=== PATIENT | female | born 1970 | race Caucasian/White ===

== ENCOUNTER 2020-04-23 01:19 | Emergency (ER) | payer SELFPAY ==
[2020-04-23 02:11] LABS: Absolute Lymphocytes (CBC) 1.6 K/uL (0.7-4.9); Basophils % 0.8 % (0-1.3); Hematocrit 36.5 % (36.0-45.0); Lymphocytes % 17.1 % (15.3-44.8); MPV 8.8 fL (7.6-11.3); RBC Red Blood Cell Count 4.01 M/uL (3.86-4.86)
[2020-04-23 02:37] LABS: ALT/SGPT 25 U/L (12-78); AST/SGOT 20 U/L (15-37); Albumin 3.5 g/dL (3.4-5.0); Alkaline Phosphatase 79 U/L (45-117); BUN Blood Urea Nitrogen 9 mg/dL (7-18); Bicarbonate 22 mmol/L (21-32); Bilirubin Direct 0.2 mg/dL (0-0.2); Bilirubin Total 0.6 mg/dL (0.2-1.0); CKMB Creatine Kinase MB 2.4 ng/mL (0.3-3.6); Creatine Phosphokinase 183 U/L (26-192); Glucose Level 91 mg/dL (74-106); Lipase 62 U/L (73-393); Magnesium 1.7 mg/dL (1.8-2.4); NT PRO-BNP 48 pg/mL (<125); Potassium 3.1 mmol/L (3.5-5.1); Protein, Total 7.3 g/dL (6.4-8.2); Sodium Level 138 mmol/L (136-145); Troponin (Emerg Dept Use Only) < 0.02 ng/mL (0.0-0.045)
[2020-04-23 02:42] LABS: Protime INR 0.97
--- NOTE | 2020-04-23 03:41 | EDPHYS ---
Physician Documentation [facility] Name: Brenda Salcedo Age: 50 yrs Sex: Female : 1970 Arrival Date: 04/23/2020 Time: 01:20 Bed 7 Private MD: ED Physician Hector Scruggs HPI: 04/23 03:00 This 50 yrs old Female presents to ER via EMS with complaints of Shortness Of tw4 Breath. 03:00 The patient or guardian reports cough, that is constant. Onset: The symptoms/episode tw4 began/occurred today. Severity of symptoms: At their worst the symptoms were moderate, in the emergency department the symptoms are unchanged. Modifying factors: The symptoms are alleviated by nothing, the symptoms are aggravated by nothing. The patient has not experienced similar symptoms in the past. 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 - Social history:: Smoking status: Patient reports the use of cigarette tobacco products, Patient uses street drugs, marijuana. ROS: 03:00 Constitutional: Negative for fever, chills, and weight loss, Eyes: Negative for injury, tw4 pain, redness, and discharge, Cardiovascular: Negative for chest pain, palpitations, and edema, Abdomen/GI: Negative for abdominal pain, nausea, vomiting, diarrhea, and constipation, Back: Negative for injury and pain, MS/Extremity: Negative for injury and deformity, Skin: Negative for injury, rash, and discoloration, Neuro: Negative for headache, weakness, numbness, tingling, and seizure. 03:00 Respiratory: Positive for cough, "sounds productive", shortness of breath. Exam: 03:00 Constitutional: This is a well developed, well nourished patient who is awake, alert, tw4 and in no acute distress. Head/Face: Normocephalic, atraumatic. Chest/axilla: Normal chest wall appearance and motion. Nontender with no deformity. No lesions are appreciated. Cardiovascular: Regular rate and rhythm with a normal S1 and S2. No gallops, murmurs, or rubs. Normal PMI, no JVD. No pulse deficits. Respiratory: Lungs have equal breath sounds bilaterally, clear to auscultation and percussion. No rales, rhonchi or wheezes noted. No increased work of breathing, no retractions or nasal flaring. Abdomen/GI: Soft, non-tender, with normal bowel sounds. No distension or tympany. No guarding or rebound. No evidence of tenderness throughout. Back: No spinal tenderness. No costovertebral tenderness. Full range of motion. MS/ Extremity: Pulses equal, no cyanosis. Neurovascular intact. Full, normal range of motion. Neuro: Awake and alert, GCS 15, oriented to person, place, time, and situation. Cranial nerves II-XII grossly intact. Motor strength 5/5 in all extremities. Sensory grossly intact. Cerebellar exam normal. Normal gait. Vital Signs: 01:34 BP 107 / 54; Pulse 85; Resp 18; Temp 97.9(O); Pulse Ox 100% on R/A; mg2 03:22 BP 102 / 90; Pulse 80; Resp 18; Pulse Ox 100% on R/A; mg2 MDM: 01:48 Patient medically screened. tw4 03:01 Differential Diagnosis: Bronchitis Influenza Upper Respiratory Infection Asthma tw4 Exacerbation Viral Syndrome Pneumonia. Data reviewed: vital signs, nurses notes. Data reviewed: lab test result(s), CBC, electrolytes, Flu: EKG, radiologic studies, plain films. Data interpreted: Pulse oximetry: Interpretation: normal. Test interpretation: by ED physician or midlevel provider: ECG, plain radiologic studies. Counseling: I had a detailed discussion with the patient and/or guardian regarding: the historical points, exam findings, and any diagnostic results supporting the discharge/admit diagnosis, lab results, radiology results. 03:41 Special discussion: I discussed with the patient/guardian in detail that at this point tw4 there is no indication for admission to the hospital. It is understood, however, that if the symptoms persist or worsen the patient needs to return immediately for re-evaluation. 04/23 01:47 Order name: Blood Culture Adult (2) 04/23 01:47 Order name: BMP; Complete Time: 03:29 04/23 03:30 Interpretation: Normal except: K 3.1; CL 108; GFR 67. tw4 04/23 01:47 Order name: CBC with Diff; Complete Time: 03:29 04/23 03:31 Interpretation: Within normal limits. 04/23 01:47 Order name: Ckmb; Complete Time: 03:29 04/23 03:31 Interpretation: Within normal limits: CKMB 2.4. 04/23 01:47 Order name: CPK; Complete Time: 03:29 04/23 03:31 Interpretation: Within normal limits: CPK 183. 04/23 01:47 Order name: D-Dimer; Complete Time: 03:29 04/23 03:31 Interpretation: Within normal limits: D-DIMER 483. 04/23 01:47 Order name: Hepatic Function; Complete Time: 03:29 04/23 03:30 Interpretation: Normal except: GLOB 3.8; A/G 0.9. 04/23 01:47 Order name: Lipase; Complete Time: 03:29 04/23 03:30 Interpretation: Normal except: LIP 62. 04/23 01:47 Order name: Magnesium; Complete Time: 03:29 04/23 03:31 Interpretation: Abnormal: MG 1.7. 04/23 01:47 Order name: NT PRO-BNP; Complete Time: 03:29 04/23 03:31 Interpretation: Within normal limits: NT PRO-BNP 48. 04/23 01:47 Order name: PT-INR; Complete Time: 03:29 04/23 03:31 Interpretation: Within normal limits: PT 11.4. 04/23 01:47 Order name: Ptt, Activated; Complete Time: 03:29 04/23 03:33 Interpretation: Within normal limits: PTT 30.4. 04/23 01:47 Order name: Troponin (emerg Dept Use Only); Complete Time: 03:29 04/23 03:33 Interpretation: Within normal limits: TROPED < 0.02. 04/23 01:48 Order name: Blood Culture EDMI 04/23 01:47 Order name: XRAY CXR (1 view) 04/23 01:47 Order name: EKG; Complete Time: 01:49 04/23 01:47 Order name: Cardiac monitoring; Complete Time: 01:47 04/23 01:47 Order name: EKG - Nurse/Tech; Complete Time: 01:47 04/23 01:47 Order name: IV Saline Lock; Complete Time: 01:47 04/23 01:47 Order name: Labs collected and sent; Complete Time: 01:47 04/23 01:47 Order name: O2 Per Protocol; Complete Time: 01:47 04/23 01:47 Order name: O2 Sat Monitoring; Complete Time: 01:47 04/23 01:48 Order name: COVID-19 04/23 01:48 Order name: Document PUI#; Complete Time: 02:04/23 01:48 Order name: Droplet/Contact Precautions; Complete Time: 02:04/23 01:48 Order name: Labs collected and sent; Complete Time: 01:59 04/23 02:11 Order name: Flu; Complete Time: 03:04/23 03:34 Interpretation: Within normal limits. tw4 04/23 02:11 Order name: Strep; Complete Time: 03:04/23 03:34 Interpretation: Within normal limits. tw4 04/23 02:48 Order name: Throat Culture EDMI 04/23 01:48 Order name: O2 Per Protocol; Complete Time: 01:59 ea EC:02 Rate is 78 beats/min. Rhythm is regular. QRS [place] is Normal. MS interval is normal. QRS tw4 interval is normal. QT interval is normal. No Q waves. T waves are Normal. No ST changes noted. Clinical impression: Normal ECG. Interpreted by me. Reviewed by me. Administered Medications: 03:40 Drug: Potassium Effervescent Tablet 50 mEq Route: PO; 03:51 Follow up: Response: No adverse reaction mg2 Disposition: 04/23/20 03:40 Discharged to Home. Impression: Viral infection, unspecified, Hypokalemia. - Condition is Stable. - Discharge Instructions: Viral Respiratory Infection, Hypokalemia. - Prescriptions for Tessalon Perles 100 mg Oral Capsule - take 1 capsule by ORAL route every 8 hours As needed; 15 capsule. - Medication Reconciliation Form, Thank You Letter, Antibiotic Education, Prescription Opioid Use form. - Follow up: Private Physician; When: Upon discharge from the Emergency Department; Reason: Recheck today's complaints, Continuance of care, Re-evaluation by your physician. - Problem is new. - Symptoms have improved. Signatures: Dispatcher [employer] EDMS Aranza Pham RN Hector Vee ea, MD MD tw4 Huseyin Mejia RN mg2 Corrections: (The following items were deleted from the chart) 03:42 03:40 04/23/2020 03:40 Discharged to Home. Impression: Viral infection, unspecified. tw4 Condition is Stable. Forms are Medication Reconciliation Form, Thank You Letter, Antibiotic Education, Prescription Opioid Use. Follow up: Private Physician; When: Upon discharge from the Emergency Department; Reason: Recheck today's complaints, Continuance of care, Re-evaluation by your physician. Problem is new. Symptoms have improved. tw4 03:53 03:42 04/23/2020 03:40 Discharged to Home. Impression: Viral infection, unspecified; allie Hypokalemia. Condition is Stable. Discharge Instructions: Viral Respiratory Infection. Prescriptions for Tessalon Perles 100 mg Oral Capsule - take 1 capsule by ORAL route every 8 hours As needed; 15 capsule. and Forms are Medication Reconciliation Form, Thank You Letter, Antibiotic Education, Prescription Opioid Use. Follow up: Private Physician; When: Upon discharge from the Emergency Department; Reason: Recheck today's complaints, Continuance of care, Re-evaluation by your physician. Problem is new. Symptoms have improved. tw4
--- NOTE | 2020-04-23 03:41 | ER ---
Nurse's Notes [facility] Name: Brenda Salcedo Age: 50 yrs Sex: Female : 1970 Arrival Date: 04/23/2020 Time: 01:20 Bed 7 Private MD: Diagnosis: Viral infection, unspecified;Hypokalemia Presentation: 04/23 01:34 Chief complaint: EMS states: she has cough, shortness of breath and difficulty mg2 swallowing and epigastric pain today. Coronavirus screen: Patient reports a cough. Patient reports shortness of breath or difficulty breathing. Patient denies measured and/or subjective temperature greater than 100.4F prior to today's visit. Patient denies travel on a cruise ship or to a country the [facility] currently lists as an affected area. Patient denies contact with known and/or suspected case of COVID-19. Patient instructed to continue to wear a mask when interacting with others. Patient moved to private room, placed in contact and droplet isolation with eye protection until further assessment. Ebola Screen: No symptoms or risks identified at this time. Initial Sepsis Screen: Does the patient meet any 2 criteria? No. Patient's initial sepsis screen is negative. Does the patient have a suspected source of infection? No. Patient's initial sepsis screen is negative. Risk Assessment: Do you want to hurt yourself or someone else? Patient reports no desire to harm self or others. Onset of symptoms was April 22, 2020. 01:34 Method Of Arrival: EMS: [facility] mg2 01:34 Acuity: SHRUTHI 3 mg2 Triage Assessment: 01:51 General: Appears uncomfortable, Behavior is cooperative, appropriate for age. Pain: ea Denies pain. Neuro: Level of Consciousness is awake, alert, obeys commands, Oriented to person, place, time, situation. Cardiovascular: Patient's skin is warm and dry. Respiratory: Reports shortness of breath cough that is Airway is patent Respiratory effort is even, unlabored, Respiratory pattern is regular, symmetrical, Onset: The symptoms/episode began/occurred yesterday, the patient reports symptoms have resolved. Derm: Skin is pink, warm \T\ dry. 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 - Social history:: Smoking status: Patient reports the use of cigarette tobacco products, Patient uses street drugs, marijuana. Screenin:51 Abuse screen: Denies threats or abuse. Nutritional screening: No deficits noted. ea Tuberculosis screening: No symptoms or risk factors identified. Fall Risk IV access (20 points). Assessment: 01:52 Cardiovascular: Rhythm is sinus rhythm. ea 03:22 Reassessment: Patient appears in no apparent distress at this time. Patient and/or mg2 family updated on plan of care and expected duration. Pain level reassessed. Patient is alert, oriented x 3, equal unlabored respirations, skin warm/dry/pink. 03:51 Reassessment: Patient and/or family updated on plan of care and expected duration. Pain ea level reassessed. Patient is alert, oriented x 3, equal unlabored respirations, skin warm/dry/pink. Discharge instruction given to patient, verbalized the understanding of instruction. Pt left ED ambulatory accompanied by significant other. Vital Signs: 01:34 BP 107 / 54; Pulse 85; Resp 18; Temp 97.9(O); Pulse Ox 100% on R/A; mg2 03:22 BP 102 / 90; Pulse 80; Resp 18; Pulse Ox 100% on R/A; mg2 ED Course: 01:20 Patient arrived in ED. ds1 01:22 Hector Scruggs MD is Attending Physician. tw4 01:34 Huseyin Mejia RN is Primary Nurse. mg2 01:36 Triage completed. mg2 01:45 Inserted saline lock: 20 gauge in left antecubital area, using aseptic technique. Blood mg2 collected. 01:51 Patient has correct armband on for positive identification. Bed in low position. Call ea light in reach. Side rails up X2. 01:51 Arm band placed on right wrist. Patient placed in an exam room, on a stretcher, on ea pulse oximetry. 02:24 No provider procedures requiring assistance completed. mg2 03:02 XRAY CXR (1 view) In Process Unspecified. EDMS 03:52 IV discontinued, intact, bleeding controlled, No redness/swelling at site. Pressure ea dressing applied. Administered Medications: 03:40 Drug: Potassium Effervescent Tablet 50 mEq Route: PO; ea 03:51 Follow up: Response: No adverse reaction mg2 Outcome: 03:40 Discharge ordered by . laila 03:51 Discharged to home ambulatory, with family. allie 03:51 Condition: stable 03:51 Discharge instructions given to patient, Instructed on discharge instructions, follow up and referral plans. medication usage, Demonstrated understanding of instructions, Prescriptions given X 1. 03:53 Patient left the ED. allie Addendum: 04/26/2020 15:06 Addendum: COVID-19 Result: Negative result given to RN to notify pt. Notified pt of d m5 negative COVID 19 swab results. Pt advised that even with a negative test result they should remain in isolation until symptom free for 3 days without medication. Pt also advised to return to the ED for worsening symptoms. Signatures: Dispatcher [employer] Almaz Locke, RN RN Ana Collins ds1 Aranza Pham RN RN ea Wadley, Terrence, MD MD tw4 Huseyin Mejia RN RN mg2
[2020-04-23] MEDS ORDERED: POTASSIUM 25 MEQ EFFERV TAB ONE (03:47)
[2020-04-23 04:03] VITALS: TEMP 97.9; O2SAT 100
[2020-04-23 04:10] VITALS: BP 102/90
--- NOTE | 2020-04-23 07:25 | EKG ---
Test Date: 2020-04-23 Test Time: 01:33:30 Chain Mender: MG MEASUREMENT RESULTS: Intervals: Rate: 78 NH: 136 QRSD: 74 QT: 378 QTc: 430 [place]: P: 84 NH: 136 QRS: 72 T: 69 INTERPRETIVE STATEMENTS: Normal sinus rhythm Normal ECG No previous ECG available for comparison Electronically Signed On 04-23-20 07:24:47 CDT by Rogelio Davis
--- NOTE | 2020-04-23 10:33 | RAD REPORT ---
EXAM DESCRIPTION: [facility] Single View04/23/2020 3:02 am CLINICAL HISTORY: cough COMPARISON: none FINDINGS: Mild opacity lateral lung base The left lung appears Clear of acute infiltrate. The heart is normal size IMPRESSION: Mild opacity right lateral lung base may represent confluence of ribs and vessels or a m ild infiltrate and can be monitored on a subsequent exam if symptoms persist
== END 2020-04-23 03:53 | disposition home or self-care (01) ==
LOC: ER 01:19
DX: B34.9 Viral infection, unspecified (principal); Z20.828 Contact with and (suspected) exposure to other viral communicable diseases; E87.6 Hypokalemia; F17.210 Nicotine dependence, cigarettes, uncomplicated
CPT/HCPCS: 36415; 71045; 80048; 80076; 82550; 82553; 83690; 83735; 83880; 84484; 85025; 85379; 85610; 85730; 87040; 87070; 87081; 87804; 93005; 99284; U0001